=== PATIENT | female | born 1960 | race Caucasian/White ===

== ENCOUNTER 2021-04-20 13:26 | Outpatient (CLI) | payer OTHER, SELFPAY ==
--- NOTE | ~2021-04-20 | CT_ITS ---
EXAMINATION: CT abdomen pelvis wo/w con DATE: 04/20/2021 14:45 INDICATION: Liver disease. Hepatic mass. TECHNIQUE: Computed tomography (CT) of the abdomen and pelvis was performed without intravenous contr ast. The dose-length product was 722.77 mGy-cm. Automated exposure control and iterative reconstructi on technique were employed. COMPARISON: CT dated 07/14/2015. FINDINGS: Heart size normal. No significant pleural or pericardial effusion. Enlarging dominant right hepatic cyst measuring 12.7 x 10.8 cm. The spleen, pancreas, adrenal glands and kidneys are unremark able. Nonobstructive bowel gas pattern. No abnormal pelvic masses or fluid collections. Uterus is alka gically absent. No evidence for vascular abnormality. No lymphadenopathy. No free air or free fluid. There are breast implants. No acute osseous abnormality. IMPRESSION: 1. Enlarging dominant cyst of the right hepatic lobe measuring 12.7 x 10.8 cm compared with 11.3 x 8. 5 cm on MRI dated 03/12/2019. Reviewed, dictated and finalized at location A. IMPRESSION: 1. Enlarging dominant cyst of the right hepatic lobe measuring 12.7 x 10.8 cm c ompared with 11.3 x 8.5 cm on MRI dated 03/12/2019.
[2021-04-20 14:21] LABS: Estimated Glomerular Filt Rate > 60
== END 2021-04-20 13:27 | disposition home or self-care (01) ==
PROVIDERS: PCP Physician Assistant; Visit Provider Physician Assistant
DX: K76.89 Other specified diseases of liver (principal)
CPT/HCPCS: 74178; Q9967

== ENCOUNTER 2022-01-06 12:39 | Emergency (ER) | payer OTHER, SELFPAY ==
--- NOTE | ~2022-01-06 | CT_ITS ---
EXAMINATION: CT abdomen pelvis w con DATE: 01/06/2022 14:20 INDICATION: Right lower quadrant abdominal pain. TECHNIQUE: Computed tomography (CT) of the abdomen and pelvis was performed with 100 mL Omnipaque 350 intravenous contrast. Automated exposure control and iterative reconstruction technique were employe d. The dose-length product was 265.49 mGy-cm. COMPARISON: CT abdomen and pelvis 04/20/2021, abdomen MRI 03/12/2019 FINDINGS: The visualized portions of the lung bases demonstrate mild atelectasis. No pleural effusion . There are bilateral breast implants. The heart size is normal. No pericardial effusion. There is a 13.3 x 10.4 x 11.8 cm cyst in right hepatic lobe. There is fat stranding at the posterior margin of t he cyst. There is a 1.3 cm cyst in the liver. The spleen, pancreas, adrenal glands, and left kidney a re normal. There are cysts in right kidney measuring up to 9 mm. There are no dilated loops of bowel. The appendix is normal. There are no pathologically enlarged lymph nodes. There is no free intraperi toneal fluid. Inferior mesenteric vein is enlarged with a portosystemic shunt to spinal veins. There is severe degenerative disc disease at L2-L3. IMPRESSION: 1. 13.3 cm liver cyst without change in size from 04/20/21 with new fat stranding at the posterior mar gin suggesting inflammation or leakage. 2. Portal venous hypertension. Reviewed, dictated and finalized at location A. OLOIST IMPRESSION: 1. 13.3 cm liver cyst without change in size from 04/20/21 with new fat strandin g at the posterior margin suggesting inflammation or leakage. 2. Portal venous hypertension.
[2022-01-06 12:45] VITALS: BP 144/73; PULSE 83; RESP 18; TEMP 36.3; O2SAT 100
--- NOTE | 2022-01-06 13:02 | ED.ABDPAIN ---
HPI - Abdominal Pain General Chief Complaint: Abdominal Pain Stated Complaint: pain in my side Time Seen by Provider: 01/06/22 12:45 Source: patient History of Present Illness HPI narrative: Patient presents with right flank pain. Reports her pain started this morning has gotten progressively worse. Pain is worse with laying flat and sitting down feels better with standing up. It is constant but wax and wanes in intensity and radiates to her abdomen is achy in nature. She also notes back pain when she takes a deep breath. She denies any cough or shortness of breath denies any prior history of blood clots any recent hospitalizations or surgeries. She does report she had some urinary symptoms a week ago had a UA performed unsure of the results but her symptoms resolved. Patient also reports a history of liver cyst Related Data Allergies Allergy/AdvReac Type Severity Reaction Status Date / Time ERYTHROMYCIN (Generic Allergy Intermediate RASH Uncoded 09/12/18 07:52 Allergy) Review of Systems Review of Systems: CONSTITUTIONAL: Denies fever, chills, or sweats. EYES: Denies visual changes, redness, or discharge. ENT: Denies rhinorrhea, congestion, sore throat, or otalgia. CARDIOVASCULAR: Denies chest pain, palpitations, or edema. RESPIRATORY: Denies cough or dyspnea. GASTROINTESTINAL: Denies nausea, vomiting, or diarrhea. GENITOURINARY: Denies dysuria or hematuria. SKIN: Denies rash or itching. MUSCULOSKELETAL: Denies back pain, joint pain, or myalgia. NEUROLOGIC: Denies headache, numbness, dizziness, or weakness. PSYCHIATRIC: Denies anxiety or depression. All systems reviewed & are unremarkable except as noted in HPI and below PMFSH Past Medical History Medical History Anxiety Liver cyst Lcffm-Uvptedfcx-Ftgkx (WPW) pattern Surgical History Surgical History Hx of hysterectomy Hx of tonsillectomy Family History Family History Mother Cerebrovascular accident, Onset Age: 83 Family history of heart disease in male family member before age 55 Sibling Family history of malignant neoplasm of breast in first degree relative Social History Social History Smoking status: Never smoker Alcohol intake: never Exam Narrative: GENERAL: Well-appearing, well-nourished, and in no acute distress. HEAD: Normocephalic, atraumatic. EYES: PERRLA and EOMI. ENT: Nares clear, no rhinorrhea or epistaxis. Mucous membranes moist. NECK: Supple. No masses. No JVD CHEST: Clear to auscultation. No respiratory distress. No wheezes rales or rhonchi HEART: Regular rate and rhythm. No murmur heard. Normal peripheral pulses. ABDOMEN: Moderate tenderness with palpation epigastric area mild tenderness palpation in the right upper quadrant soft, slight distention noted normal active bowel sounds. EXTREMITIES: Normal range of motion. No edema. SKIN: Warm, dry, no rash. NEURO: No focal deficits. Alert and oriented x3. PSYCH: Normal mood and affect. Course Reevaluation(s) Reevaluation #1: Patient reports feeling improved she declined supportive therapies in the ER. Results and imaging reviewed with the patient pain likely related to inflammation around her cyst. Patient does see a vacuum bottle assembler in the [facility] health care system she was instructed to follow-up with vacuum bottle assembler for further evaluation Date: 01/06/22 Time: 15:34 Vital Signs Vital signs: Vital Signs Temperature 36.3 C L 01/06/22 12:45 Pulse Rate 83 01/06/22 12:45 Respiratory Rate 18 01/06/22 12:45 Blood Pressure 144/73 H 01/06/22 12:45 Pulse Oximetry 100 01/06/22 12:45 Temperature 36.3 C L 01/06/22 12:45 Pulse Rate 83 01/06/22 12:45 Respiratory Rate 18 01/06/22 12:45 Blood Pressure 144/73 H 01/06/22 12:45 Pulse Oximetry 100
[2022-01-06 13:23] LABS: Basophils Absolute Auto 0.1 K/mm3 (0.0-0.1); Basophils Percent Auto 1.1 % (0.2-1.2); Eosinophils Absolute Auto 0.1 K/mm3 (0-0.3); Eosinophils Percent Auto 0.9 % (0-4.4); Hemoglobin 13.7 g/dL (12.0-15.0); Immature Granulocyte Absolute 0.03 K/mm3 (0.00-0.031); Immature Granulocyte Percent A 0.4 % (0-0.5); Lymphocytes Absolute Auto 1.21 K/mm3 (0.9-3.2); Lymphocytes Percent Auto 15.5 % (18.3-44.2); Mean Corpuscular HGB Conc 32.6 g/dl (32-36); Mean Corpuscular Hemoglobin 30.4 pg (26-34); Mean Corpuscular Volume 93.1 fl (80-100); Mean Platelet Volume 11.4 fl (7.4-10.4); Monocytes Absolute Auto 0.6 K/mm3 (0.1-0.6); Monocytes Percent Auto 7.7 % (2.6-8.5); Neutrophils Absolute Auto 5.8 K/mm3 (1.3-6.7); Neutrophils Percent Auto 74.4 % (45.5-73.1); Platelet Count Result 208 k/mm3 (150-375); Red Blood Count 4.51 M/mm3 (4.2-5.4); Red Cell Distribution Width 12.6 % (11.5-14.5); White Blood Count 7.8 K/mm3 (4.5-10.0)
[2022-01-06 13:28] LABS: Add Urine Microscopic? YES; Amorphous Sediment Urine Moderate; Appearance Urine Cloudy (Clear); Bilirubin Urine Negative (Negative); Blood Urine Negative (Negative); Color Urine Yellow (Yellow); Glucose Urine UA Negative (Negative); Ketones Urine Negative (Negative); Leukocyte Esterase Ur Negative LEU/UL (Negative); Mucus Urine Rare /lpf; Nitrate Urine Negative (Negative); Protein Urine Negative (Negative); Specific Grav Ur 1.017 (1.001-1.035); WBC Urine 0-3 /hpf
[2022-01-06 13:37] LABS: Alanine Aminotransferase 26 U/L (4-35); Albumin Level 4.2 g/dL (3.5-5.1); Alkaline Phosphatase 75 U/L (38-126); Anion Gap 7 mmol/L (8-16); Aspartate Amino Transferase 35 U/L (14-36); Bilirubin,Total 1.1 mg/dL (0.2-1.3); Blood Urea Nitrogen 20 mg/dL (7-17); Calcium 8.9 mg/dL (8.4-10.2); Carbon Dioxide 28 mmol/L (22-30); Chloride 106 mmol/L (98-107); Estimated CRCL calculation 48 ml/min; Estimated Glomerular Filt Rate > 60; Glucose 118 mg/dL (65-110); Lipase 96 U/L (23-300); Potassium 4.1 mmol/L (3.4-5.0); Sodium 141 mmol/L (137-145)
[2022-01-06 13:49] LABS: D Dimer < 0.22 ug/mL (<0.48)
== END 2022-01-06 15:46 | disposition home or self-care (01) ==
PROVIDERS: Emergency Provider Emergency Medicine; PCP Physician Assistant
DX: R10.9 Unspecified abdominal pain (principal); K76.89 Other specified diseases of liver; K76.6 Portal hypertension
CPT/HCPCS: 36415; 74177; 80053; 81001; 81025; 83690; 85025; 85380; 99284; Q9967

== ENCOUNTER → 2022-09-03 15:11 | Outpatient (CLI) | payer OTHER, SELFPAY ==
--- NOTE | ~2022-09-03 | US_ITS ---
EXAMINATION: US pelvic limited DATE: 09/03/2022 15:32 INDICATION: Urinary urgency. TECHNIQUE: Multiple transabdominal sonographic images of the pelvis were obtained. COMPARISON: CT abdomen and pelvis 01/06/2022 FINDINGS: The bladder is not well distended. The prevoid bladder volume is 37 mL. The postvoid bladder volume i s 5 mm. IMPRESSION: 1. Bladder not well distended on prevoid images. The patient reported feeling full and would not hold urine longer. Reviewed, dictated and finalized at location A. IMPRESSION: 1. Bladder not well distended on prevoid images. The patient reported feeling f ull and would not hold urine longer.
== END ==
PROVIDERS: PCP Physician Assistant; Visit Provider Physician Assistant
DX: R39.15 Urgency of urination (principal)
CPT/HCPCS: 76857

== ENCOUNTER → 2023-07-22 15:04 | Outpatient (CLI) | payer OTHER, SELFPAY ==
--- NOTE | ~2023-07-22 | CT_ITS ---
EXAMINATION: CT abdomen pelvis wo/w con DATE: 07/22/2023 15:56 INDICATION: Gross hematuria. TECHNIQUE: Computed tomography (CT) of the abdomen and pelvis was performed without and with intraven ous contrast using a total of 130 mL Omnipaque-350 intravenous contrast with a double-bolus technique for simultaneous opacification of the renal parenchyma and renal collecting system. Automated exposu re control and iterative reconstruction technique were employed. The dose-length product was 1169.83 mGy-cm. COMPARISON: CT abdomen and pelvis 01/06/2022 FINDINGS: The visualized portions of the lung bases demonstrate mild atelectasis. No pleural effusion. The hear t size is normal. No pericardial effusion. There are bilateral breast implants. There are cysts in th e liver measuring up to 4.8 cm. The gallbladder, spleen, pancreas, and adrenal glands are normal. The re is a 9 mm cyst in right kidney. There is a 2 mm stone in left kidney. The ureters are well opacifi ed and are normal. The bladder is normal. There are no dilated loops of bowel. The appendix is normal . There is a venous shunt between the superior mesenteric vein and the inferior vena cava. There are no pathologically enlarged lymph nodes. There is no free intraperitoneal fluid. There is severe lumba r spondylosis. IMPRESSION: 1. 2 mm nonobstructing left kidney stone. Reviewed, dictated and finalized at location E.
[2023-07-22 15:29] LABS: Estimated Glomerular Filt Rate > 60
== END ==
PROVIDERS: PCP Urology; Visit Provider Urology
DX: R31.0 Gross hematuria (principal); N20.0 Calculus of kidney
CPT/HCPCS: 74178; Q9967

== ENCOUNTER 2024-10-30 12:30 | Emergency (ER) | payer OTHER, SELFPAY ==
[2024-10-30 13:32] VITALS: BP 146/82; PULSE 82; RESP 16; TEMP 37; O2SAT 99
--- NOTE | 2024-10-30 14:57 | ED_ITS ---
HPI - URI/Sore Throat General Chief Complaint: Upper Respiratory Infection Stated Complaint: Sore Throat Time Seen by Provider: 10/30/24 14:45 Source: patient, RN notes reviewed and old records reviewed Mode of arrival: ambulatory Limitations: no limitations History of Present Illness HPI Narrative: 64 year old female who presents to express care with loss of voice after having URI symptoms and continues to have sore throat. Patient reports that she had COVID,FLU and Strep tests on Saturday which were negative. Patient reports that she has not had any fevers or chills or sweats. Patient reports that she has be en taking Delsym for her cough. MD elicited complaint: cough, sore throat, rhinorrhea and nasal congestion Pain scale (0-10): 4 Able to tolerate fluids by mouth: Yes Treatments prior to arrival: other (Delsym cough syrup) Related Data Allergies Allergy/AdvReac Type Severity Reaction Status Date / Time ERYTHROMYCIN (Generic Allergy Intermediate RASH Uncoded 10/30/24 15:05 Allergy) Review of Systems Review of Systems: CONSTITUTIONAL: Reports malaise, no chills, sweats, or fever. EYES: Denies visual changes, redness, or discharge. ENT: Reports rhinorrhea, congestion, no sinus pain, no otalgia and positive for sore throat and loss of voice CARDIOVASCULAR: Denies chest pain, palpitations, or edema. RESPIRATORY: Reports cough.? Denies dyspnea. GASTROINTESTINAL: Denies abdominal pain, nausea, vomiting, diarrhea SKIN: Denies rash or itching. MUSCULOSKELETAL: Denies myalgia. NEUROLOGIC: Denies headache. All systems reviewed & are unremarkable except as noted in HPI and below PMFSH Past Medical History Medical History Liver cyst Anxiety Rsdwd-Oyxznbren-Hsqhu (WPW) pattern Surgical History Surgical History Hx of hysterectomy Hx of tonsillectomy Family History Family History Mother Cerebrovascular accident, Onset Age: 83 Family history of heart disease in male family member before age 55 Sibling Family history of malignant neoplasm of breast in first degree relative Social History Social History Smoking status: Never smoker Alcohol intake: never Comments At time of signature, agree with nursing past medical, surgical, social and family history. There is no relevant family history pertinent to the presenting complaint Exam Narrative: GENERAL: Well-appearing, well-nourished, and in no acute distress. HEAD: Normocephalic EYES: PERRLA, conjunctivae clear ENT: Nares clear, turbinates edematous and erythematous, clear discharge. Mucous membranes moist. TM pearly mendosa with dull light reflex bilaterally; no tragal tenderness. Oropharynx erythematous without lesions. Tonsils not present and throat without exudate, no drooling, positive for hoarseness, no trismus, uvula midline, some post nasal drainage. NECK: Supple. No lymphadenopathy CHEST: Clear to auscultation, breath sounds equal. No wheezing, rhonchi, rales, or stridor. No respiratory distress, speaks in full sentences.cough no tachypnea SAO2 99% on room air HEART: Regular rate and rhythm. No murmur heard. SKIN: Warm, dry, no rash. NEURO: Alert and oriented x3. PSYCH: Normal mood and affect Course Course Emergency Course: Patient is aware of diagnosis, understands and agrees to treatment plan.? Anticipatory guidance given.? Patient agrees to follow-up as directed and is aware of reasons to seek care at the emergency department. Portions of this record may have been created with voice recognition software Level of Care: Express Care Visit Vital Signs Vital signs: Vital Signs Temperature 37.0 C 10/30/24 13:32 Pulse Rate 82 10/30/24 13:32 Respiratory Rate 16 10/30/24 13:32 Blood Pressure 146/82 H 10/30/24 13:32 Pulse Oximetry 99 10/30/24 13:32 Temperature 37.0 C 10/30/24 13:32 Pulse Rate 82 10/30/24 13:32 Respiratory Rate 16 10/30/24 13:32 Blood Pressure 146/82 H 10/30/24 13:32 Pulse Oximetry 99 10/30/24 13:32 reviewed MDM - URI/Sore Throat MDM Narrative Medical decision making narrative: Differential diagnosis considered: English virus, strep pharyngitis, allergic rhinitis, upper respiratory tract infection, sinusitis, rhinosinusitis, nasopharyngitis. viral pharyngitis, otitis media, otitis externa, pneumonia, bronchitis, viral cough syndrome, viral syndrome, and influenza.? Exam findings show no acute concerns or changes; patient is non-toxic appearing and is in no distress.? Patient is appropriate for outpatient treatment and follow-up. Differential Diagnosis Differential diagnosis: Likely upper respiratory infection, viral infection, pharyngitis and other (strep pharyngitis, loss of voice) Medical Records Attestation: I reviewed the patient's medical records. Lab Data Attestation: I reviewed the patient's lab results. Lab results narrative: strep screen negative, culture sent Labs: Lab Results 10/30/24 Range/Units 15:13 POC Grp A Strep Screen Negative (Negative) reviewed Critical Care Time Critical Care Time Critical Care Time: No Discharge Plan Discharge Clinical Impression: Acute sore throat, Loss of voice Patient Disposition: Home, Self-Care Condition: Stable Instructions: Antibiotic Form, Pharyngitis (ED) Additional Instructions: Increase fluids especially juices and water [id number] cough and cold medicine of your choice for your symptoms Zyrtec Claritin or Jennifer daily Steroids as directed--take with food heat to the face 20-30 minutes 4-6 times a day for pain Salt water gargles, throat lozenges or throat sprays as desired If your symptoms persist, change or worsen significantly before you can contact your personal physician then please, without delay, go to the emergency department for further evaluation. Follow-up with PCP in 7-10 days or sooner if needed Follow up with PCP soon in regards to your blood pressure which is elevated above threshold for referral. Blood pressure above 120/80 may indicate pre- hypertension. 146/82 Patient Language: Slovenian Prescriptions: New prednisone 10 mg tablet 10 mg PO DIRECTED Qty: 21 0RF Rx Instructions: see taper instructions 6 tabs day 1, 5 tabs day 2, 4 tabs day 3, 3 tabs day 4, 2 tabs day 5, 1 tab day 6 Follow-up/Referrals: PHYSICIAN,[facility] [Primary Care Provider] - Time of Disposition: 15:32 Quality [place] Coma Scale Eyes: Open Verbal: Oriented and Alert Motor: Follows Commands [place] Coma Total Score: 15
[2024-10-30 16:22] LABS: EDSTREPNEGPOS1 Negative (Negative)
== END 2024-10-30 15:36 | disposition home or self-care (01) ==
PROVIDERS: Emergency Provider Registered Nurse
DX: J02.9 Acute pharyngitis, unspecified (principal); R49.1 Aphonia; I45.6 Pre-excitation syndrome
CPT/HCPCS: 87081; 87880; 99213; G0463